=== PATIENT | female | born 1985 ===

== ENCOUNTER 2017-11-18 11:13 | Emergency (ER) | payer OTHER ==
[2017-11-18 11:22] VITALS: BP 118/78; PULSE 83; RESP 18; TEMP 97.8; O2SAT 99
[2017-11-18] MEDS ORDERED: Amoxicillin-Clav 500-125 mg Tab PO ONE (12:19)
--- NOTE | 2017-11-18 12:43 | C.PDOC ---
History Of Present Illness 31 year old female presents to the ED c/o sore throat, right ear pain associated with subjective fever since Wednesday. Patient denies nausea, vomit, headache, dizziness, recent travel, sick contacts. Time Seen by Provider: 11/18/17 11:26 Chief Complaint (Nursing): ENT Problem History Per: Patient History/Exam Limitations: None Onset/Duration Of Symptoms: Days Current Symptoms Are (Timing): Still Present Quality (Ear): Pain W/Touch Quality (Mouth/Throat): Redness Anticoagulant/Antiplatlet Use?: No Recent Aspirin Use: No Past Medical History Reviewed: Historical Data, Nursing Documentation, Vital Signs Vital Signs: Last Vital Signs Temp 97.8 F 11/18/17 11:16 Pulse 83 11/18/17 11:16 Resp 18 11/18/17 11:16 BP 118/78 11/18/17 11:16 Pulse Ox 99 11/18/17 13:14 - Medical History PMH: No Chronic Diseases Surgical History: No Surg Hx Family History: States: Unknown Family Hx - Social History Hx Alcohol Use: No Hx Substance Use: No - Immunization History Hx Tetanus Toxoid Vaccination: No Hx Influenza Vaccination: No Hx Pneumococcal Vaccination: No Review Of Systems Constitutional: Positive for: Fever ENT: Positive for: Ear Pain, Throat Pain. Negative for: Nose Discharge, Nose Congestion, Throat Swelling Respiratory: Negative for: Cough, Shortness of Breath Gastrointestinal: Negative for: Nausea, Vomiting Skin: Negative for: Rash Physical Exam - Physical Exam Appears: Non-toxic, No Acute Distress Skin: Normal Color, Warm, Dry Head: Atraumatic, Normacephalic Eye(s): bilateral: Normal Inspection Ear(s): Left: Normal, Right: TM Erythema (bulging) Nose: No Discharge Oral Mucosa: Moist Throat: Erythema (mild), No Exudate, No Drooling Neck: Normal ROM, Supple Chest: Symmetrical Cardiovascular: Rhythm Regular, No Murmur Respiratory: Normal Breath Sounds, No Rales, No Rhonchi, No Wheezing Extremity: Normal ROM, No Tenderness Neurological/Psych: Oriented x3, Normal Speech Gait: Steady ED Course And Treatment O2 Sat by Pulse Oximetry: 99 (On RA) Pulse Ox Interpretation: Normal Medical Decision Making Medical Decision Making: Plan: * Amoxicillin 500 mg PO * Ibuprofen 400 mg PO Patient was given amoxicillin in the ED and D/C home with instructions to follow up with clinic for further evaluation. Disposition - Disposition Referrals: [facility] [Outside] Disposition: HOME/ ROUTINE Disposition Time: 12:41 Condition: STABLE Additional Instructions: Follow up in Clinic within 1-2 days. Return to ED if feel worse. Prescriptions: Amoxicillin 500 mg PO Q8 #30 tab Ibuprofen [Motrin Tab] 400 mg PO Q8 #30 tab Instructions: Ear Infections (Otitis Media) Forms: [employer] (Divehi) Print Language: BOTSWANAN - Clinical Impression Clinical Impression: Otitis media - PA / INSTITUTE DIRECTOR / Resident Statement MD/DO has reviewed & agrees with the documentation as recorded. - Scribe Statement The provider has reviewed the documentation as recorded by the Scribe Rufino Gilman All medical record entries made by the Scribe were at my direction and personally dictated by me. I have reviewed the chart and agree that the record accurately reflects my personal performance of the history, physical exam, medical decision making, and the department course for this patient. I have also personally directed, reviewed, and agree with the discharge instructions and disposition.
== END 2017-11-18 12:57 | disposition home or self-care (01) ==
LOC: C.ER 11:13
DX: H66.91 Otitis media, unspecified, right ear (principal)

== ENCOUNTER 2018-02-17 22:57 | Emergency (ER) | payer OTHER ==
[2018-02-17 23:41] LABS: SQUAMOUS EPITHIAL 37 /hpf (0-5); URINE BILIRUBIN 1+ (NEGATIVE); URINE BLOOD 2+ (NEGATIVE); URINE CLARITY Hazy (Clear); URINE COLOR Amber (YELLOW); URINE GLUCOSE (UA) NORMAL (Normal); URINE LEUKOCYTE ESTERASE 1+ Leu/uL (Negative); URINE PROTEIN 2+ mg/dL (NEGATIVE)
[2018-02-17 23:42] LABS: HCG,QUALITATIVE URINE NEGATIVE (NEGATIVE)
[2018-02-17] MEDS ORDERED: Naproxen 550 mg Tab PO STA (23:48)
[2018-02-17] MEDS ORDERED: Naproxen 550 mg Tab PO ONE (23:56)
--- NOTE | 2018-02-18 00:03 | C.PDOC ---
Time Seen by Provider: 02/17/18 23:29 Chief Complaint (Nursing): Abdominal Pain History Per: Patient Onset/Duration Of Symptoms: Hrs (today) Current Symptoms Are (Timing): Still Present Severity: Moderate Location Of Pain/Discomfort: Suprapubic Quality Of Discomfort: "Pain" Associated Symptoms: Urinary Symptoms Alleviating Factors: None Additional History Per: Prior Records Abnormal Vaginal Bleeding: No Past Medical History Reviewed: Historical Data, Nursing Documentation, Vital Signs Vital Signs: Last Vital Signs Temp 98.6 F 02/17/18 23:17 Pulse 83 02/17/18 23:17 Resp 20 02/17/18 23:17 BP 118/74 02/17/18 23:17 Pulse Ox 96 02/17/18 23:17 - Medical History PMH: No Chronic Diseases Surgical History: No Surg Hx Family History: States: Unknown Family Hx - Social History Hx Alcohol Use: No Hx Substance Use: No - Immunization History Hx Tetanus Toxoid Vaccination: No Hx Influenza Vaccination: No Hx Pneumococcal Vaccination: No Review Of Systems Except As Marked, All Systems Reviewed And Found Negative. Constitutional: Positive for: Fever (subjective) ENT: Positive for: Ear Pain (left). Negative for: Ear Discharge Cardiovascular: Negative for: Chest Pain Respiratory: Negative for: Shortness of Breath Gastrointestinal: Positive for: Nausea, Abdominal Pain (suprapubic). Negative for: Vomiting, Diarrhea Genitourinary: Negative for: Vaginal Discharge, Vaginal Bleeding Musculoskeletal: Positive for: Back Pain. Negative for: Neck Pain Skin: Negative for: Rash Neurological: Positive for: Headache. Negative for: Weakness, Numbness Physical Exam - Physical Exam Appears: Non-toxic, No Acute Distress Skin: Normal Color, Warm, Dry, No Rash Head: Atraumatic, Normacephalic Eye(s): bilateral: Normal Inspection, PERRL, EOMI Ear(s): Bilateral: Normal Oral Mucosa: Moist Neck: Normal ROM, Supple Cardiovascular: Rhythm Regular Respiratory: Normal Breath Sounds, No Accessory Muscle Use Gastrointestinal/Abdominal: Soft, Tenderness (suprapubic), No Guarding, No Rebound Extremity: Normal ROM Neurological/Psych: Oriented x3, Normal Speech, Normal Cognition, Normal Motor, Normal Sensation ED Course And Treatment - Laboratory Results Interpretation Of Abnormal: Probable UTI, urine C&S sent. Urine POC: Negative O2 Sat by Pulse Oximetry: 96 Pulse Ox Interpretation: Normal Reassessment Condition: Improved Progress - Interventions Interventions:: Observation - Medications Administered Oral: Antiemetic, NSAID - Data Reviewed Data Reviewed: Lab, Old records - Patient Plan Patient Plan: Discharge, F/U with PCP Disposition Counseled Patient/Family Regarding: Studies Performed, Diagnosis, Need For Followup, Rx Given - Disposition Referrals: [facility] [Outside] Disposition: HOME/ ROUTINE Disposition Time: 00:04 Condition: STABLE Additional Instructions: Drink plenty of fluids. Follow up in the clinic. Return to the ER if you develop vomiting, fever, worsening of symptoms or if you have any other concerns. Prescriptions: Ciprofloxacin [Cipro] 1 tab PO BID #14 tab Instructions: Urinary Tract Infection, Adult (DC) Print Language: MONTSERRATIAN - Clinical Impression Clinical Impression: UTI (urinary tract infection), Otalgia of left ear
[2018-02-18 00:09] VITALS: BP 110/70; PULSE 80; RESP 16; TEMP 98.5; O2SAT 99
== END 2018-02-18 00:09 | disposition home or self-care (01) ==
LOC: C.ER 22:57
DX: N39.0 Urinary tract infection, site not specified (principal); H92.02 Otalgia, left ear

== ENCOUNTER 2018-08-29 14:19 | Emergency (ER) | payer OTHER ==
[2018-08-29 14:34] VITALS: BMI 32.3
[2018-08-29 14:36] VITALS: BP 107/67; PULSE 73; RESP 18; TEMP 97.8; O2SAT 98
--- NOTE | 2018-08-29 15:25 | C.PDOC ---
History Of Present Illness 32 y/o female with no PMHx presents to the ED complaining of nasal congestion, sore throat, runny nose, and earache for the last 2-3 days. States she has developed a fever blister on her lip yesterday as well. Otherwise patient denies any nausea, vomiting, diarrhea, headache, dizziness, or SOB. Time Seen by Provider: 08/29/18 15:11 Chief Complaint (Nursing): Abnormal Skin Integrity History Per: Patient History/Exam Limitations: no limitations Onset/Duration Of Symptoms: Days Current Symptoms Are (Timing): Still Present Past Medical History Reviewed: Historical Data, Nursing Documentation, Vital Signs Vital Signs: Last Vital Signs Temp 97.8 F 08/29/18 14:34 Pulse 73 08/29/18 14:34 Resp 18 08/29/18 14:34 BP 107/67 08/29/18 14:34 Pulse Ox 98 08/29/18 14:34 - Medical History PMH: No Chronic Diseases Surgical History: No Surg Hx Family History: States: Unknown Family Hx - Social History Hx Alcohol Use: No Hx Substance Use: No - Immunization History Hx Tetanus Toxoid Vaccination: No Hx Influenza Vaccination: No Hx Pneumococcal Vaccination: No Review Of Systems Constitutional: Negative for: Fever, Chills, Weakness Eyes: Negative for: Redness, Other (scleral icterus) ENT: Positive for: Ear Pain, Nose Discharge, Nose Congestion, Throat Pain, Other (Cold sore to lip) Cardiovascular: Negative for: Chest Pain Respiratory: Negative for: Cough, Shortness of Breath Gastrointestinal: Negative for: Nausea, Vomiting, Diarrhea Genitourinary: Negative for: Dysuria Musculoskeletal: Negative for: Back Pain Neurological: Negative for: Weakness, Headache, Dizziness Physical Exam - Physical Exam Appears: Non-toxic, No Acute Distress Skin: Normal Color, Warm, No Rash Head: Atraumatic, Normacephalic Eye(s): bilateral: Normal Inspection (no scleral icterus), PERRL, EOMI Ear(s): Bilateral: Normal (on drainage) Nose: Discharge (Rhinorrhea noted, with enlarged turbinates bilaterally) Oral Mucosa: Moist Lips: Lesions (Cold sore to right upper lip) Throat: Normal (airway patent, no swelling or injection), No Erythema, No Exudate Neck: Normal ROM Chest: Symmetrical Respiratory: No Accessory Muscle Use, Other (Normal inspiratory effort) Extremity: Bilateral: Atraumatic, Normal ROM Pulses: Left Radial: Normal, Right Radial: Normal Neurological/Psych: Oriented x3, Normal Cranial Nerves Gait: Steady ED Course And Treatment O2 Sat by Pulse Oximetry: 98 (RA) Pulse Ox Interpretation: Normal Medical Decision Making Medical Decision Making: Impression: Viral illness Will d/c patient home with Rx for Motrin, Zyrtec, and Tamiflu. Disposition Counseled Patient/Family Regarding: Diagnosis, Need For Followup, Rx Given - Disposition Disposition: HOME/ ROUTINE Disposition Time: 15:24 Condition: STABLE Prescriptions: Cetirizine HCl/Pseudoephedrine [Zyrtec-D Tablet] 1 each PO DAILY #14 tab.er.12h Ibuprofen [Motrin Tab] 600 mg PO TID #21 tab Oseltamivir Phosphate [Tamiflu] 75 mg PO BID 5 Days capsule Instructions: Viral Upper Respiratory Infection, Adult (DC) Forms: Gen Discharge Inst Indonesian, [employer] (Indonesian), Work Excuse Print Language: THAI - Clinical Impression Clinical Impression: Influenza-like illness - PA / BIOLOGICAL INSPECTOR / Resident Statement MD/DO has reviewed & agrees with the documentation as recorded. - Scribe Statement The provider has reviewed the documentation as recorded by the Jeanmarie Cehng All medical record entries made by the Benjaminibissac were at my direction and personally dictated by me. I have reviewed the chart and agree that the record accurately reflects my personal performance of the history, physical exam, medical decision making, and the department course for this patient. I have also personally directed, reviewed, and agree with the discharge instructions and disposition.
== END 2018-08-29 15:45 | disposition home or self-care (01) ==
LOC: C.ER 14:19
DX: J11.1 Influenza due to unidentified influenza virus with other respiratory manifestations (principal)